=== PATIENT | female | born 1980 | race Two or more races ===

== ENCOUNTER 2021-03-08 15:35 | Emergency (ER) | payer BC ==
[~2021-03-08] VITALS: Ht 167.6 cm; Wt 61.2 kg
[2021-03-08 15:46] VITALS: BP 124/78
--- NOTE | 2021-03-08 16:25 | NUR ---
TAKEN TO CT
[2021-03-08] MEDS ORDERED: NAPROXEN 500 MG TABLET PO SCH (16:30)
[2021-03-08] MEDS ORDERED: NAPROXEN 250 MG TABLET ONE (16:58)
--- NOTE | 2021-03-08 17:53 | NUR ---
Patient discharged to home in stable condition. Written and verbal after care instructions given. Patient verbalizes understanding of instruction.
== END 2021-03-08 18:19 | disposition home or self-care (01) ==
LOC: ER 15:39
DX: S13.4XXA Sprain of ligaments of cervical spine, initial encounter (principal); S80.12XA Contusion of left lower leg, initial encounter; J45.909 Unspecified asthma, uncomplicated; V49.69XA Unspecified car occupant injured in collision with other motor vehicles in traffic accident, initial encounter; Y93.89 Activity, other specified; Y92.89 Other specified places as the place of occurrence of the external cause; Y99.8 Other external cause status
CPT/HCPCS: 72050-TC; 72110-TC; 73590-TC